=== PATIENT | male | born 1945 | race Caucasian/White ===

== ENCOUNTER 2021-01-10 06:04 | Day surgery (SDC) | payer BC, MEDICARE ==
[~2021-01-10] VITALS: Ht 172.7 cm; Wt 86.5 kg
[~2021-01-10 06:04] MED LIST: AMLO-187 PO; ASPI325T8 PO; ATOR40TA59 PO; DAPT350V IV; DONE5TAB7 PO; ERTA1VIA4 IJ; HYDROmorphone 2 MG/ML VIAL IVP PRN; IV RINGERS,LACTATED 1000ML 1,000 ML IV SCH; LISI1TAB20 PO; LISI20TA18 PO; METO-247 PO; METO100T7 PO; MORPHINE SULFATE 2 MG/ML INJ. IVP PRN; NIFE60TA90 PO; PROCHLORPERAZINE 10 MG/2 ML VIAL. IVP PRN; SERT-266 PO; SERT25TA PO; VANC1.257 IV; fentaNYL PF VIAL 100 MCG/2 ML VIAL IVP PRN
[2021-01-10 06:56] VITALS: BP 131/69
[2021-01-10] MEDS ORDERED: LIDOCAINE 2% PF 5 ML VIAL. ONE (07:06)
[2021-01-10] MEDS ORDERED: PROPOFOL 10 MG/ML (20ML) VIAL. IV ONE (07:06)
[2021-01-10 07:25] LABS: BASO # 0.1 x10^3/uL (0.0-0.2); BASO % 1 % (0-3); EOS # 0.2 x10^3/uL (0.0-0.7); EOS % 3 % (0-3); HEMOGLOBIN 13.9 g/dL (13.0-17.5); LYMPH # 1.5 x10^3/uL (1.0-4.8); LYMPH % 21 % (24-48); MEAN CORPUSCULAR HEMOGLOBIN 32 pg (25-35); MEAN CORPUSCULAR HGB CONC 34 g/dL (31-37); MEAN CORPUSCULAR VOLUME 93 fL (79-100); MONO # 0.8 x10^3/uL (0.0-1.1); MONO % 11 % (0-9); NEUT # 4.9 x10^3/uL (1.8-7.7); NEUT % 65 % (31-73); PLATELET COUNT 170 x10^3/uL (140-400); RED CELL DISTRIBUTION WIDTH 14.5 % (11.5-14.5); WHITE BLOOD COUNT 7.5 x10^3/uL (4.0-11.0)
[2021-01-10] MEDS ORDERED: BUPIVACAINE-EPI 0.5%-1:200000 MPF 30 ML VIAL. ONE (07:33)
[2021-01-10] MEDS ORDERED: LIDOCAINE 1%/EPI 1:100,000 20 ML VIAL. ONE (07:34)
[2021-01-10] MEDS ORDERED: MIDAZOLAM HCL/PF 2 MG/2 ML VIAL. ONE (07:37)
[2021-01-10 07:39] LABS: CREATININE 0.8 mg/dL (0.7-1.3); GFR 94.8; POTASSIUM 4.1 mmol/L (3.5-5.1)
[2021-01-10] MEDS ORDERED: GLYCOPYRROLATE 1 MG/5 ML VIAL. ONE (07:41)
[2021-01-10] MEDS ORDERED: LIDOCAINE 1% Multi-Dose 20 ML VIAL. ONE (07:45)
[2021-01-10] MEDS ORDERED: HYDR-2759 PO (08:12)
[2021-01-10] MEDS ORDERED: AMOX1TAB61 PO (08:19)
--- NOTE | 2021-01-10 08:22 | DISCH ---
DISCHARGE INSTRUCTIONS Condition on Discharge Condition on Discharge: Stable Activity After Discharge Activity Instructions for Disc: Resume previous activity (with post op shoe while ambulating), Activity as tolerated Bathing Instructions: Shower-keep dressing dry Weight Bearing Status after Di: Full weight bearing Diet after Discharge Diet after Discharge: Cardiac Diet Texture: Regular Liquid Texture: Thin Liquid Wound Incision Care Wound/Incision Care: Keep wound/cast CDI ([facility]) Checks after Discharge Checks after discharge: Check blood sugar, ac/hs Follow-Up Follow up with: in [facility] 01/13/21 [id number], call our office for follow up in 3 weeks [phone] Treatment/Equipment after DC Adaptive Equipment Issued: None BOGDAN PIMENTEL APRN Jan 10, 2021 08:22
--- NOTE | 2021-01-10 08:25 | PDOC ---
BRIEF OPERATIVE NOTE Date: Jan 10, 2021 Pre-Op Diagnosis Left first toe ulcer Post-Op Diagnosis same Procedure Performed Left first toe closed amputation Surgeon Dr. Bergman Straw Hat Brusher Bogdan Pimentel NP Anesthesia Type: MAC, Local Blood Loss 5cc Specimens Obtained left first toe Findings adequate intraoperative bleeding at amputation site, no purulent drainage Complications none Operative Note dictated note BOGDAN PIMENTEL [employer] INDUSTRIAL ENGINEER Jan 10, 2021 08:25
[2021-01-10 08:27] VITALS: BP 108/61
--- NOTE | 2021-01-10 08:39 | OP ---
DATE OF SURGERY: 01/10/2021 SURGEON: Celeste Bergman MD BOAT DESIGNER: Elsa Barroso, nurse practitioner. PREOPERATIVE DIAGNOSIS: Left first toe ulcers and osteomyelitis. POSTOPERATIVE DIAGNOSIS: Left first toe ulcers and osteomyelitis. OPERATION PERFORMED: Left first toe closed amputation. BLOOD LOSS: Minimal, approximately 3 mL. ANESTHESIA USED: Monitored sedation. 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 He has been found by imaging study to have osteomyelitis. He has been on IV antibiotics. Recommendations have been made for a left first toe amputation. On examination prior to surgery, there is no significant erythema and there is no purulent drainage or abscess cavities. Informed consent was obtained. DETAILS OF THE OPERATION: The patient was brought to the operating room and placed on table in supine position. He received monitored sedation throughout the case by the anesthesiologist. His left foot and toes were circumferentially prepped and draped in normal sterile fashion. 1% lidocaine was used to perform digital block at the base of the left first toe. We then made a fishmouth type incision at the base of the left first toe underneath the open ulcers where there was healthy skin. We dissected down through the subcutaneous tissue through the tendon and muscle down to the bone. We transected the bone with a bone cutter and removed the toe. The bone was brought back within the wound with a rongeur. The bone was healthy within the wound. We did not have to expose or remove the metatarsal head. There was good bleeding throughout the wound bed, which was controlled with electrocautery. We irrigated the open wound with copious amounts of antibiotic irrigation and saline. The wound was nice and healthy with no signs of infection; therefore, we closed the incision with running 3-0 nylon suture. Xeroform was placed over the incision along with 4 x 4 gauze, Kerlix wrap, and an Josh bandage. He tolerated the surgery with no immediate complications. SPECIMEN REMOVED: Left first toe. RACHAEL/ALEX DR: Nichole TID: [id number]
[2021-01-10] MEDS ORDERED: HYDROcodone/APAP 5/325MG 1 TAB TABLET PO ONE (08:45)
--- NOTE | 2021-01-14 17:07 | PATHOLOGY ---
[facility] Accession Number: [id number] . 01 Material submitted: . toe - LEFT 1ST TOE. Modifiers: left, first . 01 Clinical history: . LEFT 1ST TOE WOUND LEFT 1ST TOE AMPUTATION . 02 Diagnosis: Toe, left first toe amputation: - Deep ulceration of distal toe with necrosis and acute inflammation, with surrounding granulation tissue showing subacute and chronic inflammation, and with pseudoepitheliomatous hyperplasia of skin bordering ulcer. 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 - Proximal bone amputation margin negative for osteomyelitis. (JPM:mmleisa; 01/14/2021) [facility] 01/14/2021 1659 Local . 02 Electronically signed: . Del Luciano MD, Pathologist NPI- [id number] . 01 Gross description: . The specimen is received in formalin, labeled "Kashmir [place], left first toe". Received is an amputated digit measuring 4.5 x 3.5 x 2.8 cm in greatest dimensions. The bone margin is jagged in appearance. The bone and soft tissue margins are inked black. The nail is present displaying a pale mcintyre and severely thickened appearance. Immediately distal to the nail, there is an ill-defined, irregular in contour and yellow-mcintyre to estrada-mcintyre lesion measuring 1.6 x 1.3 cm. On the plantar/medial aspect of the specimen, there is a second lesion which is ill-defined, irregular in contour and yellow-mcintyre to light mcintyre measuring 2.8 x 1.5 cm. The specimen is submitted representatively as follows: . A1 longitudinal cross-section through first lesion at distal aspect of toe, following decalcification A2 longitudinal cross-section through second lesion near skin margin, following decalcification A3 longitudinal cross-section through bone margin, following decalcification. (CAA; 01/13/2021) QAC/QAC 01/13/2021 1244 Local . 02 Pathologist provided ICD-10: L97.529, I96, L98.9, M86.172 . 02 CPT . 613209, 757226 Specimen Comment: A courtesy copy of this report has been sent to [phone] Specimen Comment: Report sent to [facility]formed at: [facility] [address], [place] [id number] MD Kaiden Prakash MD Phone: [phone] Performed at: [facility] [address] [place], [place] [id number] MD Del Luciano MD Phone: [phone]
== END 2021-01-10 09:15 | disposition home or self-care (01) ==
LOC: SURG 06:04
PROVIDERS: ATTEND Surgery Vascular Surgery
DX: L97.528 Non-pressure chronic ulcer of other part of left foot with other specified severity (principal); M86.9 Osteomyelitis, unspecified; I10 Essential (primary) hypertension; F41.9 Anxiety disorder, unspecified; F32.9 Major depressive disorder, single episode, unspecified; Z79.82 Long term (current) use of aspirin; Z79.899 Other long term (current) drug therapy; Z98.890 Other specified postprocedural states; Z87.891 Personal history of nicotine dependence; Z20.822 Contact with and (suspected) exposure to COVID-19
CPT/HCPCS: 28810; 36415; 80048; 85025; 87426; A4209; A4930; A6402; J0690; J2250; J2704; J3490; J7050; J7030